=== PATIENT | female | born 2000 | race Caucasian/White ===

== ENCOUNTER 2019-07-18 13:50 | Outpatient (CLI) | payer OTHER ==
--- NOTE | 2019-07-18 15:56 | ULT ---
PELVIC ULTRASOUND: Transabdominal ultrasound of pelvis performed. INDICATION: Follow-up right paraovarian cyst. There are no comparison studies available. FINDINGS: Uterus has a normal size and appearance. Uterine measurements recorded at 7.7 x 4.6 x 3.5 cm. The end ometrial stripe is upper normal, measured at 1.5 cm. Right ovary is identified. Color Doppler with spectral analysis demonstrates blood flow to the right ovary. A right ovarian cyst is identified, measuring 2.0-2.5 cm. Left ovary is identified. Color Doppler with spectral analysis demonstrates blood flow to the left ov beatrice. A left ovarian cyst is identified, measuring 3-4 cm. No free fluid. IMPRESSION: Bilateral ovarian cysts are identified as described. POS: OFF
== END 2019-07-18 13:51 | disposition home or self-care (01) ==
LOC: SCSULT 13:50
DX: N91.4 Secondary oligomenorrhea (principal); Z87.42 Personal history of other diseases of the female genital tract; N83.202 Unspecified ovarian cyst, left side; N83.201 Unspecified ovarian cyst, right side
CPT/HCPCS: 76856; 93976